=== PATIENT | female | born 1935 | race Caucasian/White ===

== ENCOUNTER → 2016-06-18 | Outpatient (CLI) | payer OTHER ==
[~2016-06-18] VITALS: Ht 149.9 cm; Wt 50.3 kg
[~2016-06-18] MED LIST: ACETAMINOPHEN-1 EAC1 OR; ACETAMINOPHEN-1 EAC1 PO; ADVAIR 100-501 EACH INH; ADVAIR 250-501 EACH IH; ADVIL COLD & S1 EAC1; ADVIL200 M2 PO; BACTRIM DS TAB1 EACH; BENADRYL ALLERG25 MG PO; BENADRYL25 MG PO; CALCIUM 600 WI1 EACH PO; CITRACAL + BON1 EACH; CITRUCEL CLEAR539 GM PO; CITRUCEL500 MG PO; CLARINEX5 MG PO; FLEXERIL PO; FLONASE 0.05%50 MCG NASAL; FLONASE INH; FOSAMAX 70 MG T70 MG PO; GABAPENTIN PO; GLUCOPHAGE500 MG PO; HYDROCODON-ACE1 EAC7 PO; HYDROCODON-ACE1 EAC8 PO; HYDROCODONE-AP1 EA11 PO; IBUPROFEN 200200 M1 PO; IBUPROFEN 400400 M2 PO; LOTREL 10-20 M1 EACH PO; LYRICA 50 MG50 MG PO; MIRALAX17 GM PO; MIRALAX255 GM PO; MS CONTIN15 MG PO; MULTIPLE VITAM1 EAC3 PO; NORCO 5-325 TA1 EACH PO; PREVACID15 MG PO; PRILOSEC 20 MG20 MG; VIT C 500 MG-E500 MG PO
--- NOTE | ~2016-06-18 | HPC ---
[facility] [address] [place] [address] PAIN MANAGEMENT CONSULTATION Name: SHIRLEY LEZAMA Room #: REG [facility].#: [id number] Admission: 06/18/16 Attend Phys: Eric Zayas DO Discharge: Date of : 37 Report #: [id number] THIS REPORT FOR: //name// CC: Eric Lund MD DATE OF SERVICE: 06/18/2016 REFERRING PHYSICIAN: Manuel Restrepo M.D. CHIEF COMPLAINT: Low back pain, right lower extremity pain with paresthesias. HISTORY OF PRESENT ILLNESS: As you know, the patient is a very pleasant 80-year-old female who returns today in followup visit for the next in a series of epidural injections under fluoroscopic guidance. The patient places her pain score today 9/10. States her pain is aching, radiating, burning and constant, exacerbated with walking, sitting, standing, improves with heat, medications, rest and epidural injections. The most recent epidural injection reportedly provided 60% improvement in overall pain lasting until just recently where she had had a slow and progressive return of symptoms. She denies new injury or new trauma that may have led to her symptom return. She has had no change in her medical history since our last visit. ALLERGIES: DOXYCYCLINE, ADHESIVE TAPES. CURRENT MEDICATIONS: Ibuprofen, diphenhydramine, MiraLax, Citrucel, fluticasone, Tylenol No.3, metformin, omeprazole, amlodipine/benazepril. SOCIAL HISTORY: The patient denies tobacco, alcohol, IV or illicit drug use. She is unaccompanied today. IMAGING: No new imaging available. PHYSICAL EXAMINATION: VITAL SIGNS: Blood pressure 162/80, pulse 70, respiratory rate 16, unlabored. The patient is 100% on room air, height 4 feet 11 inches tall, weight 110.8 pounds, BMI calculated 22.4. GENERAL: Well-developed, well-nourished, well-hydrated 80-year-old female appearing her stated age. She is placing pain score today 9/10. HEENT: Normocephalic, atraumatic. Pupils equal, round, reactive to light. Extraocular muscles are intact. Sclerae nonicteric without injection. EXTREMITIES: Showed no clubbing, no cyanosis, no edema. MUSCULOSKELETAL: Seated straight leg raising negative. Supine straight leg raising positive on the left. Rachelle's test is positive on the right. [facility] [address] [place] [address] PAIN MANAGEMENT CONSULTATION Name: SHIRLEY LEZAMA Room #: REG [facility]#: [id number] Admission: 06/18/16 Attend Phys: Eric Zayas DO Discharge: Date of : 36 Report #: [id number] Gaenslen's positive for axial low back pain. Muscle bulk and tone equal and symmetrical in lower extremities. ASSESSMENT: 1. Symptomatic lumbar radiculopathy. 2. Lumbosacral spondylosis with radiculopathy. 3. Displacement of lumbar intervertebral disk with radiculopathy. 4. Facet arthropathy of the lumbar spine. 5. Lumbar degeneration. 6. Chronic intractable pain. PLAN: 1. The patient returns today in followup visit requesting next in the series of epidural injections. She has done very well with previous epidural injections, hopeful to see similar improvement today. The patient has been advised of the risks and benefits of this procedure. These risks include but are not necessarily limited to bleeding, bruising, infection, worsening pain, no relief of pain, also risk of temporary or permanent muscle weakness, temporary or permanent nerve damage, possible paralysis and . The patient states understood and wished to proceed. 2. No medication changes were made at today's visit. The patient will continue current medical therapy as previously prescribed. 3. The patient to return to our clinic on an as needed basis for possible repeat epidural injection and discuss other treatment options for chronic lumbar radicular symptoms. PROCEDURE NOTE DESCRIPTION OF PROCEDURE: Lumbar epidural steroid injection under fluoroscopic guidance. This is the second procedure of the third series that the patient is undergoing. After obtaining written consent, the patient was taken back to the fluoroscopy suite, placed in a prone position with pillow under the abdomen to decrease lumbar lordosis. The skin overlying the lumbosacral area was then prepped and draped in aseptic fashion. The lumbar vertebral interspace was then identified by AP fluoroscopy. The skin and subcutaneous tissue overlying the target site of injection was anesthetized with 3 mL 1% lidocaine. A 20-guage 3-1/2 inch Tuohy needle was then advanced under fluoroscopic guidance towards the epidural space using a paramedian approach. The epidural space was identified using loss of resistance to air technique. After negative aspiration for heme or cerebrospinal fluid, a total of 1 mL of Omnipaque was injected. A lumbar epidurogram was confirmed using both AP and lateral fluoroscopy. After negative aspiration for heme or cerebrospinal fluid, 5 mL of a solution [address] [address] PAIN MANAGEMENT CONSULTATION Name: SHIRLEY LEZAMA [id number] Admission: 06/18/16 Attend Phys: Eric Zayas DO Discharge: Date of : 36 Report #: [id number] containing 2 mL, 40 mg per mL, 80 mg total triamcinolone, 3 mL of lidocaine 1% was injected in increments. Contrast spread was noted posterior epidural space. The needle was then retracted approximately half way and needle tract flushed with 1 mL of lidocaine. Needle was then removed. There were no apparent sensory or motor deficits in the lower extremity following the procedure. A sterile bandage was placed over the injection site. The heart rate, pulse, oximetry and blood pressure were continuously monitored after the procedure. There were no apparent complications. The patient tolerated the procedure well and was carefully escorted to the recovery room in stable condition. There were no apparent complications. After meeting discharge criteria, the patient was then discharged home. By: 0723 1200 Eric Zayas DO /nt
[2016-06-18 10:50] VITALS: BP 162/80
== END | disposition home or self-care (01) ==
LOC: PAIN 07:42
DX: M51.16 Intervertebral disc disorders with radiculopathy, lumbar region (principal); M47.27 Other spondylosis with radiculopathy, lumbosacral region; M46.96 Unspecified inflammatory spondylopathy, lumbar region; G89.29 Other chronic pain

== ENCOUNTER → 2016-07-23 | Outpatient (CLI) | payer OTHER | LOC: CAT 08:17 | DX: R10.10 Upper abdominal pain, unspecified (principal); R63.4 Abnormal weight loss; R11.0 Nausea ==

== ENCOUNTER → 2016-10-29 | Outpatient (CLI) | payer OTHER ==
[~2016-10-29] VITALS: Ht 149.9 cm; Wt 50.3 kg
--- NOTE | ~2016-10-29 | HPC ---
[facility] [address] [place] [address] PAIN MANAGEMENT CONSULTATION Name: SHIRLEY LEZAMA Room #: REG [facility].#: [id number] Admission: 10/29/16 Attend Phys: Eric Zayas DO Discharge: Date of : 36 Report #: [id number] THIS REPORT FOR: //name// CC: Eric Lund MD DATE OF SERVICE: 10/29/2016 REFERRING PHYSICIAN: Topher Lund MD CHIEF COMPLAINT: Low back pain, right lower extremity pain and paresthesias. HISTORY OF PRESENT ILLNESS: As you know, the patient is a very pleasant 81-year-old female who returns today in followup visit reporting pain score at 8/10, states her pain begins in low back, radiates down the right leg to the foot. She indicates pain is radiating burning, and constant sensation with numbness and tingling, exacerbated with walking, standing and sitting, improves with medications and rest. She returns today in followup visit requesting next in a series of epidural injections. She reported a 50% improvement in overall pain with previous injection itself. She returns today in hopes of further improvement and to build on success of previous intervention. She denies injury or trauma to her lower back or right lower extremity that may have lead to progression of symptoms. She has had no change in her medical history since our last visit. ALLERGIES: DOXYCYCLINE, ADHESIVE TAPES. CURRENT MEDICATIONS: Ibuprofen, diphenhydramine, MiraLax, Citrucel, fluticasone, codeine with acetaminophen, metformin, omeprazole, amlodipine, benazepril. SOCIAL HISTORY: The patient denies tobacco, alcohol, IV or illicit drug use. She is retired. She is unaccompanied today. IMAGING: No new imaging available. PHYSICAL EXAMINATION: VITAL SIGNS: Blood pressure 152/79, pulse 81, respiratory rate 14, unlabored. The patient is 98% on room air, height 4 feet 11 inches tall, weight 111 pounds, BMI calculated 22.4. GENERAL: Well-developed, well-nourished, well hydrated, thin scoliotic and kyphotic 81-year-old female appearing stated age. Pain is rated around 8/10. HEENT: Normocephalic, atraumatic. Pupils equal, round, reactive to light. Speech is fluent. EXTREMITIES: Show no clubbing, no cyanosis, no edema. [facility] [address] [place] [address] PAIN MANAGEMENT CONSULTATION Name: SHIRLEY LEZAMA Room #: REG [facility]#: [id number] Admission: 10/29/16 Attend Phys: Eric Zayas DO Discharge: Date of : 36 Report #: [id number] MUSCULOSKELETAL: Seated straight leg raising negative. Supine straight leg raising positive on the right. Fabere's test negative. Modified Gaenslen's positive for axial low back pain. Ankle clonus negative. Babinski is negative. Gait is antalgic. ASSESSMENT: 1. Symptomatic lumbar radiculopathy. 2. Displacement of lumbar intervertebral disk with radiculopathy. 3. Lumbosacral spondylosis with radiculopathy. 4. Lumbar degeneration. 5. Scoliosis. 6. Kyphosis. 7. Chronic intractable pain. PLAN: 1. The patient returns today in followup visit requesting to undergo the next in a series of epidural injections. The patient reports an 50% improvement in overall pain with the injection provided at last visit. She returns today in followup visit to undergo the next in the series of epidural injections. She has been advised risks and benefits of the procedure, states she understood and wished to proceed. 2. No medication changes were made at today's visit. The patient to continue current medical therapy as previously prescribed. 3. The patient to return to our clinic on an as needed basis for next in the series of epidural injection and discuss other treatment options. PROCEDURE NOTE DESCRIPTION OF PROCEDURE: L4-L5 paramedian epidural steroid injection under fluoroscopic guidance. This is the 2 procedure of the 3 series that the patient is undergoing. After obtaining written consent, the patient was taken back to the fluoroscopy suite, placed in a prone position with pillow under the abdomen to decrease lumbar lordosis. The skin overlying the lumbosacral area was then prepped and draped in aseptic fashion. The L4-5 vertebral interspace was then identified by AP fluoroscopy. The skin and subcutaneous tissue overlying the target site of injection was anesthetized with 3 mL 1% lidocaine. A 20-gauge 3-1/2 Tuohy needle was then advanced under fluoroscopic guidance towards the epidural space using a paramedian approach. The epidural space was identified using loss of resistance to air technique. After negative aspiration for heme or cerebrospinal fluid, a total of 1 mL of Omnipaque was injected. A lumbar epidurogram was confirmed using both AP and lateral fluoroscopy. After negative aspiration for heme or cerebrospinal fluid, 5 mL of solution containing [facility] [address] [place] [address] PAIN MANAGEMENT CONSULTATION Name: SHIRLEY LEZAMA [facility] [id number] Admission: 10/29/16 Attend Phys: Eric Zayas DO Discharge: Date of : 36 Report #: [id number] 2 mL, 40 mg/mL, 80 mg total of triamcinolone, 3 mL of lidocaine 1% was injected in increments. Contrast spread was noted posterior epidural space. The needle was then retracted approximately half way and needle tract flushed with 1 mL of 1% lidocaine Needle was then removed. There were no apparent sensory or motor deficits in the lower extremity following the procedure. A sterile bandage was placed over the injection site. The heart rate, pulse, oximetry and blood pressure were continuously monitored after the procedure. There were no apparent complications. The patient tolerated the procedure well and was carefully escorted to the recovery room in stable condition. There were no apparent complications. After meeting discharge criteria, the patient was then discharged home. By: 1 0935 Eric Zayas DO /nt
[2016-10-29 12:51] VITALS: BP 152/79
== END | disposition home or self-care (01) ==
LOC: PAIN 07:19
DX: M51.16 Intervertebral disc disorders with radiculopathy, lumbar region (principal); M47.27 Other spondylosis with radiculopathy, lumbosacral region; M41.9 Scoliosis, unspecified; G89.29 Other chronic pain; M40.209 Unspecified kyphosis, site unspecified; Z88.8 Allergy status to other drugs, medicaments and biological substances; Z79.899 Other long term (current) drug therapy

== ENCOUNTER → 2016-11-19 | Outpatient (CLI) | payer OTHER ==
[~2016-11-19] VITALS: Ht 149.9 cm; Wt 46.7 kg
--- NOTE | ~2016-11-19 | HPC ---
[facility] [address] [place] [address] PAIN MANAGEMENT CONSULTATION Name: SHIRLEY LEZAMA Room #: REG [facility].#: [id number] Admission: 11/19/16 Attend Phys: Eric Zayas DO Discharge: Date of : 36 Report #: [id number] THIS REPORT FOR: //name// CC: Eric Lund MD DATE OF SERVICE: 11/19/2016 DATE OF SERVICE: 11/19/2016 CHIEF COMPLAINT: Low back pain, right lower extremity pain and paresthesias. HISTORY OF PRESENT ILLNESS: As you know, the patient is a very pleasant 81-year-old female who returns today in followup visit with pain score of approximately 8/10. States her pain is exacerbated with walking, standing, sitting, improves with medications, heat and cold compresses, rest, repositioning and epidural injections. She returns today requesting the next in a series of epidural injections reporting 75% improvement in overall pain prior to procedure. She returns today for the last in this series of epidural injections. She has done very well with these injections. We are hopeful to see prolonged improvement with today's procedure. She denies injury or trauma or changes in medical history since our last visit. ALLERGIES: DOXYCYCLINE, ADHESIVE TAPES. CURRENT MEDICATIONS: Ibuprofen, diphenhydramine, MiraLax, Citrucel, fluticasone, codeine with acetaminophen, metformin, omeprazole, amlodipine, benazepril. SOCIAL HISTORY: The patient denies tobacco, alcohol, IV or illicit drug use. She is retired. retired years ago. She is accompanied by her daughter is present in room today. IMAGING: No new imaging available. PHYSICAL EXAMINATION: VITAL SIGNS: Blood pressure 165/71, pulse is 67, respiratory rate 16, unlabored. The patient is 100% on room air, height 4 feet 11 inches tall, weight 103 pounds, BMI calculated 20.8. GENERAL: Well-developed, well-nourished, well-hydrated, thin, kyphotic and scoliotic 81-year-old female appearing her stated age. Pain is rated at 8/10. HEENT: Normocephalic, atraumatic. Pupils equal, round, reactive to light. Extraocular muscles are intact. Speech is fluent. EXTREMITIES: Show no clubbing, no cyanosis, no edema. MUSCULOSKELETAL: Seated straight leg raising negative. Supine straight leg [address] [address] PAIN MANAGEMENT CONSULTATION Name: SHIRLEY LEZAMA Room #: REG [facility]#: [id number] Admission: 11/19/16 Attend Phys: Eric Zaysa DO Discharge: Date of : 36 Report #: [id number] raising positive on the right. EMA test negative. Gait is antalgic favoring right lower extremity over left. Muscle bulk and tone equal and symmetrical in lower extremities. ASSESSMENT: 1. Symptomatic lumbar radiculopathy. 2. Displacement of lumbar intervertebral disk with radiculopathy. 3. Lumbosacral spondylosis with radiculopathy. 4. Lumbar degeneration. 5. Scoliosis. 6. Kyphosis. 7. Chronic intractable pain. PLAN: 1. The patient returns today in followup visit having noted 75% improvement in overall pain with the previous epidural injection. She returns today in followup visit requesting next in the series of epidural injections in hopes of improving pain. The patient has been advised risks and benefits of procedure, states she understood and wished to proceed. 2. No medication changes were made at today's visit. The patient will continue current medical therapy as previously prescribed. 3. We will see the patient back in followup visit 6 months from the first in this series of epidural injections, which would be no earlier than 12/19/2016 for possible next in the series of epidural injections. PROCEDURE NOTE DESCRIPTION OF PROCEDURE: L4-L5 left paramedian epidural steroid injection under fluoroscopic guidance. This is the 3rd procedure of the 3rd series that the patient is undergoing. After obtaining written consent, the patient was taken back to the fluoroscopy suite, placed in a prone position with pillow under the abdomen to decrease lumbar lordosis. The skin overlying the lumbosacral area was then prepped and draped in aseptic fashion. The L4-L5 vertebral interspace was then identified by AP fluoroscopy. The skin and subcutaneous tissue overlying the target site of injection was anesthetized with 3 mL 1% lidocaine. A 20 gauge 3-7/2 inch Tuohy needle was then advanced under fluoroscopic guidance towards the epidural space using a paramedian approach. The epidural space was identified using loss of resistance to air technique. After negative aspiration for heme or cerebrospinal fluid, a total of 1 mL of Omnipaque was injected. A lumbar epidurogram was confirmed using both AP and lateral fluoroscopy. After negative aspiration for heme or cerebrospinal fluid, 5 mL of a solution containing 2 mL 40mg/mL 80 mg total triamcinolone with 3 mL of lidocaine 1% was [address] [address] PAIN MANAGEMENT CONSULTATION Name: SHIRLEY LEZAMA Room #: REG [facility]#: [id number] Admission: 11/19/16 Attend Phys: Eric Zayas DO Discharge: Date of : 36 Report #: [id number] injected in increments. Contrast spread was noted in the post-epidural space. The needle was then retracted approximately half way and needle tract flushed with 1 mL of 1% lidocaine. Needle was then removed. There were no apparent sensory or motor deficits in the lower extremity following the procedure. A sterile bandage was placed over the injection site. The heart rate, pulse, oximetry and blood pressure were continuously monitored after the procedure. There were no apparent complications. The patient tolerated the procedure well and was carefully escorted to the recovery room in stable condition. There were no apparent complications. After meeting discharge criteria, the patient was then discharged home. <ELECTRONICALLY SIGNED> By: Eric Zayas DO 11/27/16 [id number] Eric Zayas DO /nt
[2016-11-19 10:55] VITALS: BP 165/71
== END | disposition home or self-care (01) ==
LOC: PAIN 07:14
DX: M51.16 Intervertebral disc disorders with radiculopathy, lumbar region (principal); M47.27 Other spondylosis with radiculopathy, lumbosacral region; M41.86 Other forms of scoliosis, lumbar region; G89.29 Other chronic pain; Z88.1 Allergy status to other antibiotic agents; Z91.048 Other nonmedicinal substance allergy status; Z79.899 Other long term (current) drug therapy; Z98.890 Other specified postprocedural states

== ENCOUNTER 2017-03-25 15:44 | Emergency (ER) | payer OTHER ==
[~2017-03-25] VITALS: Ht 149.9 cm; Wt 48.1 kg
[2017-03-25] MEDS ORDERED: HYDROCODONE-AP1 EAC6 PO (17:46)
[2017-03-25 17:53] VITALS: BP 138/74
[2017-06-02] MEDS ORDERED: ACETAMINOPHEN-1 EAC1 PO (15:19)
[2017-06-02] MEDS ORDERED: BENEFIBER1 EAC1 PO (15:21)
== END 2017-03-25 17:54 | disposition home or self-care (01) ==
LOC: ER 15:44
DX: S16.1XXA Strain of muscle, fascia and tendon at neck level, initial encounter (principal); S20.211A Contusion of right front wall of thorax, initial encounter; S00.03XA Contusion of scalp, initial encounter; K21.9 Gastro-esophageal reflux disease without esophagitis; I10 Essential (primary) hypertension; Z88.1 Allergy status to other antibiotic agents; Z88.8 Allergy status to other drugs, medicaments and biological substances; V49.49XA Driver injured in collision with other motor vehicles in traffic accident, initial encounter; Y93.89 Activity, other specified; Y92.89 Other specified places as the place of occurrence of the external cause; Y99.8 Other external cause status

== ENCOUNTER → 2017-04-23 | Outpatient (CLI) | payer OTHER ==
[~2017-04-23] MED LIST changes: +BENEFIBER1 EAC1 PO; +HYDROCODONE-AP1 EAC6 PO
== END ==
LOC: RAD
DX: Z12.31 Encounter for screening mammogram for malignant neoplasm of breast (principal)

== ENCOUNTER → 2018-05-06 | Outpatient (CLI) | payer OTHER | LOC: RAD 04-29 13:06 | DX: Z12.31 Encounter for screening mammogram for malignant neoplasm of breast (principal) ==

== ENCOUNTER → 2019-02-05 | Outpatient (CLI) | payer OTHER | LOC: NUC 10:56 | DX: M85.89 Other specified disorders of bone density and structure, multiple sites (principal); M81.0 Age-related osteoporosis without current pathological fracture ==

== ENCOUNTER → 2019-06-23 | Outpatient (CLI) | payer OTHER | LOC: BC 05-10 20:16 → RAD 10:44 | DX: Z12.31 Encounter for screening mammogram for malignant neoplasm of breast (principal) ==

== ENCOUNTER 2020-05-26 11:05 | Emergency (ER) | payer OTHER ==
[~2020-05-26] VITALS: Ht 149.9 cm; Wt 49.0 kg
[2020-05-26 11:16] VITALS: BP 201/90
[2020-05-26] MEDS ORDERED: SYSTANE HYDRAT1 EACH EA. EYE (11:28)
[2020-05-26] MEDS ORDERED: VITAMIN C1000 MG PO (11:29)
[2020-05-26] MEDS ORDERED: VITAMIN D3100 MCG PO (11:30)
[2020-05-26] MEDS ORDERED: CALCIUM500 MG PO (11:30)
[2020-05-26] MEDS ORDERED: KEFLEX500 M1 PO ×4 (11:42→11:52)
== END 2020-05-26 12:03 | disposition home or self-care (01) ==
LOC: ER 11:05
DX: L03.114 Cellulitis of left upper limb (principal); I10 Essential (primary) hypertension; K21.9 Gastro-esophageal reflux disease without esophagitis; J45.909 Unspecified asthma, uncomplicated; E11.9 Type 2 diabetes mellitus without complications; Z90.710 Acquired absence of both cervix and uterus; Z79.899 Other long term (current) drug therapy; Z88.1 Allergy status to other antibiotic agents; Z91.048 Other nonmedicinal substance allergy status; Z88.8 Allergy status to other drugs, medicaments and biological substances

== ENCOUNTER → 2020-07-07 | Outpatient (CLI) | payer OTHER ==
[~2020-07-07] MED LIST changes: +CALCIUM500 MG PO; +KEFLEX500 M1 PO; +SYSTANE HYDRAT1 EACH EA. EYE; +VITAMIN C1000 MG PO; +VITAMIN D3100 MCG PO
== END ==
LOC: BC 09:52
PROVIDERS: ATTEND Family Medicine
DX: Z12.31 Encounter for screening mammogram for malignant neoplasm of breast (principal)

== ENCOUNTER 2020-09-21 00:49 | Emergency (ER) | payer OTHER ==
[~2020-09-21] VITALS: Ht 149.9 cm; Wt 49.9 kg
[2020-09-21 02:09] LABS: ABSOLUTE NEUTROPHILS 3.6 thou/uL (1.4-8.2); BASOPHILS 1.2 % (0.0-2.0); EOSINOPHILS 2.6 % (0.0-3.0); HEMATOCRIT 39.5 % (37.0-47.0); HEMOGLOBIN 13.2 gm/dL (12.0-15.0); LYMPHOCYTES 51.5 % (24.0-44.0); MCH 32.7 pg (26.0-34.0); MCHC 33.4 g/dL (28.0-37.0); MCV 97.9 fL (80.0-100.0); MONOCYTES 7.1 % (1.0-8.0); PLATELET COUNT 258 thou/uL (150-400); POLYS 37.6 % (36.0-66.0); RBC 4.03 mil/uL (4.20-5.00); RDW 13.3 % (10.5-14.5); WBC 9.6 thou/uL (4.0-11.0)
[2020-09-21 02:11] LABS: ANION GAP 6 mmol/L (7-16); BUN 12 mg/dL (7-18); CALCIUM 8.9 mg/dL (8.5-10.1); CHLORIDE 101 mmol/L (98-107); CO2 33 mmol/L (21-32); CREATININE 0.8 mg/dL (0.6-1.0); GLUCOSE 130 mg/dL (74-106); POTASSIUM 4.2 mmol/L (3.5-5.1); SODIUM 140 mmol/L (136-145)
[2020-09-21 02:20] LABS: MAGNESIUM 1.8 mg/dL (1.8-2.4); TROPONIN-I <0.06 ng/mL (<0.06)
[2020-09-21 05:01] VITALS: BP 174/58
--- NOTE | 2020-09-21 07:31 | EKG ---
[place] [address] [facility] [employer] [address] ELECTROCARDIOGRAM REPORT Name: SHIRLEY LEZAMA [facility] [id number] Admission: 09/21/20 Attend Phys: Discharge: 09/21/20 Date of : 36 Report #: [id number] [facility] ED Test Date: 2020-09-21 Test Time: 01:51:18 Pat Name: SHIRLEY LEZAMA Department: Room: Gender: F Housekeeping Supervisor Hotel: : 1935 Requested By: Fidelina Mccloud Order Number: [id number] MD: Julian King Measurements Intervals [place] Rate: 66 P: 41 ND: 154 QRS: 20 QRSD: 86 T: 46 QT: 428 QTc: 449 Interpretive Statements Sinus rhythm Ventricular bigeminy Probable left atrial enlargement Compared to ECG 08/10/2012 12:20:53 Myocardial infarct finding no longer present Electronically Signed On 09-21-2020 7:31:37 CDT by Julian King [email or web address] <ELECTRONICALLY SIGNED> By: Julian King MD, [facility] 09/21/20 0731 015 0151 Julian King MD, FACC /EPI
== END 2020-09-21 05:05 | disposition home or self-care (01) ==
LOC: ER 00:49
PROVIDERS: Emergency Medicine
DX: M54.10 Radiculopathy, site unspecified (principal); R20.2 Paresthesia of skin; K21.9 Gastro-esophageal reflux disease without esophagitis; I10 Essential (primary) hypertension; J45.909 Unspecified asthma, uncomplicated; E11.9 Type 2 diabetes mellitus without complications; Z98.890 Other specified postprocedural states; Z90.710 Acquired absence of both cervix and uterus; Z79.899 Other long term (current) drug therapy; Z79.84 Long term (current) use of oral hypoglycemic drugs; Z79.891 Long term (current) use of opiate analgesic; Z88.1 Allergy status to other antibiotic agents; Z88.8 Allergy status to other drugs, medicaments and biological substances; Z91.048 Other nonmedicinal substance allergy status